=== PATIENT | female | born 1980 | race African-American/Black ===

== ENCOUNTER 2021-02-07 12:07 | Emergency (ER) | payer MEDICARE, MEDICAID | END 2021-02-07 13:50 | disposition home or self-care (01) | LOC: CSHERS 12:07 | DX: R22.0 Localized swelling, mass and lump, head (principal); I10 Essential (primary) hypertension; F17.210 Nicotine dependence, cigarettes, uncomplicated | CPT/HCPCS: 99283 ==

== ENCOUNTER 2022-12-22 14:21 | Emergency (ER) | payer MEDICARE, OTHER ==
[2022-12-22] MEDS ORDERED: Fluorescein Opthalmic Strip ONE (15:10)
[2022-12-22] MEDS ORDERED: Tetracaine 0.5% PF 4 ML BOT ONE (15:11)
[2022-12-22] MEDS ORDERED: Ketorolac Tromethamine 30 MG/ML VIAL ONE (16:04)
== END 2022-12-22 17:05 | disposition home or self-care (01) ==
LOC: CSHERS 14:21
DX: S05.01XA Injury of conjunctiva and corneal abrasion without foreign body, right eye, initial encounter (principal); I10 Essential (primary) hypertension; F17.210 Nicotine dependence, cigarettes, uncomplicated; X58.XXXA Exposure to other specified factors, initial encounter
CPT/HCPCS: 96372; 99283; J1885